=== PATIENT | male | born 1995 | race Hispanic/Latino ===

== ENCOUNTER 2018-10-21 02:01 | Inpatient (IN) | payer MEDICAID, OTHER ==
[~2018-10-21] VITALS: Ht 172.7 cm; Wt 72.5 kg
[2018-10-21 02:52] LABS: BILIRUBIN,URINE Negative (NEGATIVE); COLOR,URINE Yellow (YELLOW); GLUCOSE, URINE (UA) Negative (NEGATIVE); KETONES,URINE Negative (NEGATIVE); LEUKOCYTE ESTERASE ,URINE Negative (NEGATIVE); NITRATE,URINE Negative (NEGATIVE); OCCULT BLOOD,URINE Negative (NEGATIVE); PH,URINE 7.5 (5.0-8.0); PROTEIN,URINE Negative (NEGATIVE)
[2018-10-21 02:55] LABS: APPEARANCE,URINE CLEAR (CLEAR)
[2018-10-21] MEDS ORDERED: SODIUM CHLORIDE 0.9% 1000ML 1,000 ML IV ONE ×2 (02:56→07:52)
[2018-10-21 03:01] LABS: BASOPHILS % (AUTO) 0.9 % (0.0-5.0); EOSINOPHILS % (AUTO) 1.9 % (0.0-8.0); MEAN CORPUSCULAR HEMOGLOBIN 30.2 pg (27.0-33.0); MEAN CORPUSCULAR HGB CONC 34.7 g/dL (32.0-36.0); NEUTROPHILS % (AUTO) 48.2 % (40.0-77.0); NUCLEATED RED BLOOD CELLS 0.1 % (0.0-0.19); PLATELET COUNT (AUTO) 268 K/uL (130-400); RED BLOOD CELL COUNT(AUTO) 5.29 MIL/uL (4.50-6.20); RED CELL DISTRIBUTION WIDTH 13.5 % (11.0-15.5); WHITE BLOOD COUNT (AUTO) 11.1 K/uL (4.8-10.8)
[2018-10-21 03:11] LABS: CREATININE 0.9 mg/dL (0.5-1.5); POTASSIUM 3.4 mmol/L (3.5-5.1)
[2018-10-21 03:15] LABS: ALBUMIN 4.2 g/dL (3.5-5.0); BILIRUBIN,TOTAL 0.9 mg/dL (0.2-1.0); TOTAL PROTEIN, SERUM 7.6 g/dL (6.0-8.3)
[2018-10-21 03:22] LABS: INR 0.97 (0.85-1.15); PARTIAL THROMBOPLASTIN TIME 31.9 SEC (26.3-35.5); PROTHROMBIN TIME 10.2 SEC (9.6-11.6)
[2018-10-21] MEDS ORDERED: KETOROLAC TROMETHAMINE 30MG/ML ONE (04:44)
[2018-10-21] MEDS ORDERED: SODIUM CHLORIDE 0.9% 100 ML IV ONE (06:50)
[2018-10-21] MEDS ORDERED: MORPHINE SULFATE 2 MG/ML 1ML SYG ONE (06:50)
[2018-10-21] MEDS ORDERED: ZOSYN 3.375GM+NS 50ML 50 ML IV ONE (06:50)
[2018-10-21] MEDS ORDERED: ONDANSETRON HCL 4 MG/2 ML VIAL ONE (06:50)
[2018-10-21] MEDS ORDERED: ACETAMINOPHEN 325 MG TAB PO PRN ×2 (07:00)
[2018-10-21] MEDS ORDERED: HYDRALAZINE HCL 20 MG/ML VIAL IV PRN (07:00)
[2018-10-21] MEDS ORDERED: MORPHINE SULFATE 4 MG/1ML SYG IV PRN (07:00)
[2018-10-21] MEDS ORDERED: MORPHINE SULFATE 2 MG/ML 1ML SYG IV PRN (07:00)
[2018-10-21] MEDS ORDERED: ONDANSETRON HCL 4 MG/2 ML VIAL IV PRN (07:00)
[2018-10-21] MEDS: PANTOPRAZOLE SODIUM 40 MG TABLET.DR PO SCH (09:00)
[2018-10-21 09:15] VITALS: BP 116/67
[2018-10-21 12:00] VITALS: BP 114/60
[2018-10-21] MEDS: ZOSYN 3.375GM+NS 50ML 50 ML IV SCH ×2 (12:22→23:24)
[2018-10-21 16:00] VITALS: BP 115/65
[2018-10-21 19:05] VITALS: BP 120/69
[2018-10-21 23:05] VITALS: BP 127/71
[2018-10-21] MEDS: SODIUM CHLORIDE 0.9% 1000ML 1,000 ML IV SCH (23:30)
[2018-10-22 03:05] VITALS: BP 123/67
[2018-10-22] MEDS: ZOSYN 3.375GM+NS 50ML 50 ML IV SCH (05:28)
[2018-10-22] MEDS: SODIUM CHLORIDE 0.9% 1000ML 1,000 ML IV SCH ×2 (05:34→09:30)
[2018-10-22 08:00] VITALS: BP 108/67
[2018-10-22] MEDS: PANTOPRAZOLE SODIUM 40 MG TABLET.DR PO SCH (09:50)
[2018-10-22 11:00] VITALS: BP 117/61
[2018-10-22 14:05] LABS: HEMATOCRIT 43.1 % (42-54); MEAN CORPUSCULAR HEMOGLOBIN 29.8 pg (27.0-33.0); MEAN CORPUSCULAR HGB CONC 34.2 g/dL (32.0-36.0); MEAN CORPUSCULAR VOLUME 87.4 fL (79-99); PLATELET COUNT (AUTO) 260 K/uL (130-400); RED BLOOD CELL COUNT(AUTO) 4.93 MIL/uL (4.50-6.20); RED CELL DISTRIBUTION WIDTH 13.6 % (11.0-15.5); WHITE BLOOD COUNT (AUTO) 7.6 K/uL (4.8-10.8)
[2018-10-22 14:21] LABS: CREATININE 0.8 mg/dL (0.5-1.5); CRP QUANTITATIVE 2.7 mg/L (0.00-9.0); MAGNESIUM 1.9 mg/dL (1.80-2.40)
[2018-10-22 15:10] LABS: ERYTHROCYTE SEDIMENTATION RATE 4 MM/HR (0-15)
[2018-10-22] MEDS ORDERED: TYL3 PO (15:29)
== END 2018-10-22 17:07 | disposition home or self-care (01) | DRG 446 ==
LOC: EDH 02:01 → EDHIP 02:02 → 4CH 09:16
PROVIDERS: ADMIT Internal Medicine; ATTEND Internal Medicine
DX: K80.42 Calculus of bile duct with acute cholecystitis without obstruction (principal)
CPT/HCPCS: 36415; 74177; 76705; 80048; 80053; 81003; 83690; 83735; 84100; 85025; 85027; 85610; 85651; 85730; 86140; G0378; J1885; J2405; J2543; J7030

== ENCOUNTER 2018-11-07 02:54 | Emergency (ER) | payer SELFPAY ==
[~2018-11-07 02:54] MED LIST: TYL3 PO
[2018-11-07] MEDS ORDERED: SODIUM CHLORIDE 0.9% 1000ML 1,000 ML IV ONE (03:26)
[2018-11-07] MEDS ORDERED: ONDANSETRON HCL 4 MG/2 ML VIAL ONE (03:26)
[2018-11-07] MEDS ORDERED: FAMOTIDINE/PF 20 MG/2 ML VIAL IV ONE (03:27)
[2018-11-07 03:50] LABS: BASOPHILS % (AUTO) 0.5 % (0.0-5.0); EOSINOPHILS % (AUTO) 0.6 % (0.0-8.0); HEMATOCRIT 45.9 % (42-54); LYMPHOCYTES % (AUTO) 26.4 % (21.0-51.0); MEAN CORPUSCULAR HGB CONC 34.6 g/dL (32.0-36.0); MEAN CORPUSCULAR VOLUME 86.7 fL (79-99); MONOCYTES % (AUTO) 6.1 % (3.0-13.0); NEUTROPHILS % (AUTO) 66.4 % (40.0-77.0); NUCLEATED RED BLOOD CELLS 0.1 % (0.0-0.19); PLATELET COUNT (AUTO) 288 K/uL (130-400); RED CELL DISTRIBUTION WIDTH 13.4 % (11.0-15.5); WHITE BLOOD COUNT (AUTO) 12.1 K/uL (4.8-10.8)
[2018-11-07 04:02] LABS: CREATININE 0.8 mg/dL (0.5-1.5); POTASSIUM 3.8 mmol/L (3.5-5.1)
[2018-11-07 05:27] LABS: ALBUMIN 4.3 g/dL (3.5-5.0); BILIRUBIN,DIRECT 0.1 mg/dL (0.0-0.3); BILIRUBIN,TOTAL 0.6 mg/dL (0.2-1.0); TOTAL PROTEIN, SERUM 8.2 g/dL (6.0-8.3)
== END 2018-11-07 05:54 | disposition home or self-care (01) ==
LOC: EDH 02:54
DX: R10.13 Epigastric pain (principal); R11.2 Nausea with vomiting, unspecified
CPT/HCPCS: 36415; 80048; 80076; 83690; 85025; 96361; 96374; 96375; 99283; J2405; J3490; J7030

== ENCOUNTER 2019-01-09 03:09 | Emergency (ER) | payer SELFPAY ==
[2019-01-09 03:32] LABS: APPEARANCE,URINE Clear (CLEAR); BILIRUBIN,URINE Negative (NEGATIVE); COLOR,URINE Yellow (YELLOW); GLUCOSE, URINE (UA) Negative (NEGATIVE); KETONES,URINE Negative (NEGATIVE); LEUKOCYTE ESTERASE ,URINE Negative (NEGATIVE); NITRATE,URINE Negative (NEGATIVE); OCCULT BLOOD,URINE Negative (NEGATIVE); PROTEIN,URINE Negative (NEGATIVE)
[2019-01-09] MEDS ORDERED: FAMOTIDINE/PF 20 MG/2 ML VIAL IV ONE (03:33)
[2019-01-09] MEDS ORDERED: ONDANSETRON HCL 4 MG/2 ML VIAL ONE (03:33)
[2019-01-09] MEDS ORDERED: KETOROLAC TROMETHAMINE 30MG/ML ONE (03:33)
[2019-01-09 03:40] LABS: BASOPHILS % (AUTO) 0.8 % (0.0-5.0); EOSINOPHILS % (AUTO) 2.6 % (0.0-8.0); HEMATOCRIT 46.2 % (42-54); LYMPHOCYTES % (AUTO) 35.7 % (21.0-51.0); MEAN CORPUSCULAR HEMOGLOBIN 31.1 pg (27.0-33.0); MEAN CORPUSCULAR HGB CONC 35.9 g/dL (32.0-36.0); MEAN CORPUSCULAR VOLUME 86.5 fL (79-99); MONOCYTES % (AUTO) 9.6 % (3.0-13.0); NEUTROPHILS % (AUTO) 51.3 % (40.0-77.0); NUCLEATED RED BLOOD CELLS 0.1 % (0.0-0.19); PLATELET COUNT (AUTO) 231 K/uL (130-400); RED BLOOD CELL COUNT(AUTO) 5.34 MIL/uL (4.50-6.20); RED CELL DISTRIBUTION WIDTH 13.4 % (11.0-15.5)
[2019-01-09 03:53] LABS: CREATININE 0.7 mg/dL (0.5-1.5); POTASSIUM 3.5 mmol/L (3.5-5.1)
[2019-01-09 03:59] LABS: ALBUMIN 4.2 g/dL (3.5-5.0); BILIRUBIN,TOTAL 0.9 mg/dL (0.2-1.0); TOTAL PROTEIN, SERUM 7.5 g/dL (6.0-8.3)
== END 2019-01-09 04:44 | disposition home or self-care (01) ==
LOC: EDH 03:09
DX: K80.20 Calculus of gallbladder without cholecystitis without obstruction (principal)
CPT/HCPCS: 36415; 80053; 81003; 83690; 85025; 96374; 96375; 99284; J1885; J2405; J3490

== ENCOUNTER 2019-01-12 06:33 | Inpatient (IN) | payer SELFPAY ==
[~2019-01-12] VITALS: Ht 172.7 cm; Wt 76.5 kg
[2019-01-12] MEDS: LACTATED RINGERS 1000ML 1,000 ML IV SCH ×2 (01:05→16:48)
[2019-01-12 07:03] LABS: BASOPHILS % (AUTO) 0.2 % (0.0-5.0); HEMATOCRIT 49.5 % (42-54); LYMPHOCYTES % (AUTO) 21.7 % (21.0-51.0); MEAN CORPUSCULAR HEMOGLOBIN 29.3 pg (27.0-33.0); MEAN CORPUSCULAR HGB CONC 33.8 g/dL (32.0-36.0); MEAN CORPUSCULAR VOLUME 86.5 fL (79-99); MONOCYTES % (AUTO) 6.3 % (3.0-13.0); NEUTROPHILS % (AUTO) 70.8 % (40.0-77.0); PLATELET COUNT (AUTO) 275 K/uL (130-400); RED BLOOD CELL COUNT(AUTO) 5.72 MIL/uL (4.50-6.20); RED CELL DISTRIBUTION WIDTH 13.5 % (11.0-15.5); WHITE BLOOD COUNT (AUTO) 13.8 K/uL (4.8-10.8)
[2019-01-12 07:11] LABS: AMPHET/METH SCREEN,URINE NEGATIVE (NEGATIVE); BARBITURATE SCREEN, URINE NEGATIVE (NEGATIVE); BENZODIAZEPINES SCREEN,URINE NEGATIVE (NEGATIVE); CANNABINOID SCREEN,URINE NEGATIVE (NEGATIVE); COCAINE SCREEN,URINE NEGATIVE (NEGATIVE); OPIATE SCREEN,URINE NEGATIVE (NEGATIVE); PHENCYCLIDINE SCREEN,URINE NEGATIVE (NEGATIVE)
[2019-01-12 07:12] LABS: CREATININE 0.8 mg/dL (0.5-1.5); POTASSIUM 3.4 mmol/L (3.5-5.1)
[2019-01-12 07:18] LABS: ALBUMIN 4.5 g/dL (3.5-5.0); BILIRUBIN,TOTAL 1.2 mg/dL (0.2-1.0); TOTAL PROTEIN, SERUM 8.3 g/dL (6.0-8.3)
[2019-01-12] MEDS ORDERED: FENTANYL CITRATE PF 50 MCG/1 ML 2ML VIAL ONE (07:26)
[2019-01-12] MEDS ORDERED: FAMOTIDINE/PF 20 MG/2 ML VIAL IV ONE (07:26)
[2019-01-12] MEDS ORDERED: LACTATED RINGERS 1000ML 1,000 ML IV ONE (07:27)
[2019-01-12] MEDS ORDERED: ZOSYN 3.375GM+NS 50ML 50 ML IV ONE (09:03)
[2019-01-12] MEDS ORDERED: MORPHINE SULFATE 2 MG/ML 1ML SYG ONE ×2 (09:04→12:25)
[2019-01-12] MEDS ORDERED: ONDANSETRON HCL 4 MG/2 ML VIAL ONE (09:15)
[2019-01-12 14:15] VITALS: BP 137/84
[2019-01-12] MEDS ORDERED: ONDANSETRON HCL 4 MG/2 ML VIAL IVP PRN (14:30)
[2019-01-12] MEDS: MORPHINE SULFATE 2 MG/ML 1ML SYG IVP PRN ×2 (15:02→19:36)
[2019-01-12 16:00] VITALS: BP 145/87
[2019-01-12] MEDS: ZOSYN 3.375GM+NS 50ML 50 ML IV SCH ×2 (16:49→22:10)
[2019-01-12 20:00] VITALS: BP 127/92
[2019-01-12 23:53] VITALS: BP 127/78
[2019-01-13] VITALS (25 sets, daily range): BP systolic 112–144; BP diastolic 64–92
[2019-01-13 04:00] LABS: BASOPHILS % (AUTO) 0.4 % (0.0-5.0); HEMATOCRIT 43.2 % (42-54); LYMPHOCYTES % (AUTO) 23.3 % (21.0-51.0); MEAN CORPUSCULAR HEMOGLOBIN 30.6 pg (27.0-33.0); MEAN CORPUSCULAR HGB CONC 35.4 g/dL (32.0-36.0); MEAN CORPUSCULAR VOLUME 86.5 fL (79-99); MONOCYTES % (AUTO) 8.4 % (3.0-13.0); NEUTROPHILS % (AUTO) 66.9 % (40.0-77.0); PLATELET COUNT (AUTO) 229 K/uL (130-400); RED BLOOD CELL COUNT(AUTO) 4.99 MIL/uL (4.50-6.20); RED CELL DISTRIBUTION WIDTH 13.1 % (11.0-15.5); WHITE BLOOD COUNT (AUTO) 11.6 K/uL (4.8-10.8)
[2019-01-13 04:17] LABS: ALBUMIN 3.4 g/dL (3.5-5.0); BILIRUBIN,TOTAL 2.3 mg/dL (0.2-1.0); CREATININE 0.9 mg/dL (0.5-1.5); POTASSIUM 3.6 mmol/L (3.5-5.1); TOTAL PROTEIN, SERUM 6.6 g/dL (6.0-8.3)
[2019-01-13] MEDS: ZOSYN 3.375GM+NS 50ML 50 ML IV SCH ×3 (06:04→22:09)
[2019-01-13] MEDS: LACTATED RINGERS 1000ML 1,000 ML IV SCH ×3 (06:30→13:33)
--- NOTE | 2019-01-13 08:00 | NUR ---
Notified Dr. Molina need H&P in chart for surgery, he is primary. stated Ok.
[2019-01-13] MEDS: MORPHINE SULFATE 2 MG/ML 1ML SYG IVP PRN ×3 (08:24→20:29)
--- NOTE | 2019-01-13 09:15 | NUR ---
Pt. out of room, went for surgery.
--- NOTE | 2019-01-13 09:30 | NUR ---
CONCHA NOTE- IA DELAYED PT ON THE WAY TO SURGERY, LAP JULIEN, IMPACTED STONE, WILL FOLLOW UP Addendum: 01/14/19 at 0738 by HUY KING RN CM Amended: Links added.
[2019-01-13] MEDS ORDERED: LIDOCAINE PF 2% 5ML ABBOJECT ONE (10:51)
[2019-01-13] MEDS ORDERED: PROPOFOL 10 MG/ML 20ML VIAL IV ONE ×2 (10:52)
[2019-01-13] MEDS ORDERED: NEOSTIGMINE 5MG/5ML SYR IV ONE (10:52)
[2019-01-13] MEDS ORDERED: GLYCOPYRROLATE 1 MG/5 ML SYRINGE ONE (10:52)
[2019-01-13] MEDS ORDERED: MIDAZOLAM HCL 1 MG/ML 2ML VIAL ONE (10:52)
[2019-01-13] MEDS ORDERED: ROCURONIUM 10MG/1ML SYR 10 MG/ML ML ONE (10:52)
[2019-01-13] MEDS ORDERED: FENTANYL CITRATE PF 50 MCG/1 ML 2ML VIAL ONE ×2 (10:53→11:26)
[2019-01-13] MEDS ORDERED: HEPARIN SODIUM 1000UNIT/ML 10ML VIAL ONE (11:04)
[2019-01-13] MEDS ORDERED: ESMOLOL HCL 10 MG/ML 10 ML VIAL ONE (11:26)
[2019-01-13] MEDS ORDERED: PHENYLEPHRINE HCL 10 MG/ML 1ML VIAL IV ONE (11:38)
[2019-01-13] MEDS ORDERED: DEXAMETHASONE SOD PHOSPHATE 10MG/ML 1ML VIAL ONE (11:47)
[2019-01-13] MEDS ORDERED: ONDANSETRON HCL 4 MG/2 ML VIAL ONE (11:47)
[2019-01-13] MEDS ORDERED: ACETAMINOPHEN-CODEINE 300/30MG TAB PO PRN (12:45)
[2019-01-14 04:09] VITALS: BP 125/57
[2019-01-14] MEDS: ZOSYN 3.375GM+NS 50ML 50 ML IV SCH (06:24)
[2019-01-14] MEDS: MORPHINE SULFATE 2 MG/ML 1ML SYG IVP PRN (06:36)
[2019-01-14 08:02] VITALS: BP 119/73
[2019-01-14] MEDS: LACTATED RINGERS 1000ML 1,000 ML IV SCH (08:52)
[2019-01-14 11:48] VITALS: BP 129/70
[2019-01-14] MEDS ORDERED: ACET1TAB12 PO (12:28)
[2019-01-14 16:01] VITALS: BP 120/65
== END 2019-01-14 19:00 | DRG 419 ==
LOC: EDH 06:33 → EDHIP 08:52 → OBSVTOIN 08:52 → 3BH 14:18
PROVIDERS: ADMIT Surgery; ATTEND Surgery
PROC: 0FT44ZZ Resection of Gallbladder, Percutaneous Endoscopic Approach (ICD-10-PCS; principal; 2019-01-13 11:11)
DX: K80.00 Calculus of gallbladder with acute cholecystitis without obstruction (principal)
CPT/HCPCS: 36415; 76705; 80053; 80305; 83605; 83690; 85025; G0378; J1100; J1644; J2001; J2250; J2370; J2405; J2543; J2704; J2710; J3010; J3490; J7030; J7120

== ENCOUNTER 2020-12-09 04:38 | Emergency (ER) | payer OTHER, SELFPAY ==
[~2020-12-09 04:38] MED LIST changes: +ACET1TAB12 PO
[2020-12-09] MEDS ORDERED: SODIUM CHLORIDE 0.9% 1000ML 2,000 ML IV ONE (05:09)
[2020-12-09] MEDS ORDERED: METOCLOPRAMIDE 10 MG/2 ML VIAL ONE (05:11)
[2020-12-09] MEDS ORDERED: ORPHENADRINE CITRATE 30 MG/ML ML ONE (05:11)
[2020-12-09] MEDS ORDERED: KETOROLAC TROMETHAMINE 30MG/ML ONE (05:12)
== END 2020-12-09 06:21 | disposition home or self-care (01) ==
LOC: EDH 04:38
DX: M62.830 Muscle spasm of back (principal); R51.9 Headache, unspecified; Z90.49 Acquired absence of other specified parts of digestive tract; Z87.891 Personal history of nicotine dependence
CPT/HCPCS: 96361; 96374; 96375; 99284; J1885; J2360; J2765; J7030